=== PATIENT | female | born 1945 | race Caucasian/White ===

== ENCOUNTER → 2024-07-11 | Outpatient (CLI) | payer MEDICARE, OTHER, SELFPAY ==
[2024-07-11 10:09] LABS: Collection Type, Urine Clean Catch
[2024-07-11 10:28] LABS: Basophils % (Auto) 0 % (0-2.5); Eosinophils # (Auto) 0.2 Thou/mm3 (0.0-0.5); Eosinophils % (Auto) 5 % (0-10); Hematocrit 41.8 % (36.0-46.0); Hemoglobin 13.9 g/dL (12.0-16.0); Immature Granulocytes % (Auto) 0 % (0-0); Immature Granulocytes Auto 0.01 Thou/mm3 (0.00-0.00); Lymphocytes # (Auto) 1.1 Thou/mm3 (1.0-4.8); Lymphocytes % (Auto) 22 % (10-50); Mean Corpuscular HGB Conc 33.3 g/dl (31.0-37.0); Mean Corpuscular Hemoglobin 29.8 pg (25.0-35.0); Mean Corpuscular Volume 90 fL (80-100); Monocytes # (Auto) 0.4 Thou/mm3 (0.0-0.8); Monocytes % (Auto) 7 % (0-12); Neutrophils # (Auto) 3.4 Thou/mm3 (1.8-7.7); Neutrophils % (Auto) 65 % (37-80); Nucleated Red Blood Cell % 0 /100 WBC (0); Platelet Count 154 Thou/mm3 (140-440); RDW Standard Deviation 42.1 fL (36.4-46.3); Red Blood Count 4.66 Miln/mm3 (4.00-5.20); White Blood Count 5.1 Thou/mm3 (3.6-11.0)
[2024-07-11 10:45] LABS: Bacteria,Urine Rare; Bilirubin,Urine Negative (Negative); Blood,Urine Negative (Negative); Clarity,Urine Clear (Clear/Hazy); Color,Urine Lt-Yellow (Lt Yel-Yel); Glucose, Urine Negative (Negative); Ketones,Urine Negative (Negative); Leukocyte Esterase,Urine Positive (Negative); Nitrite,Urine Negative (Negative); PH,Urine 6.5 (5.0-7.0); Protein,Urine Negative (Neg - Trace); RBC,Urine 2 /hpf (0-3); Specific Gravity,Urine 1.018 (1.001-1.035); Squamous Epithelial Cell,Urine < 1 /hpf (0-5); Urobilinogen,Urine Negative mg/dL (0.0-1.0); WBC,Urine 6 /hpf (0-5)
[2024-07-11 10:56] LABS: Alanine Aminotransferase 18 U/L (10-49); Albumin, Serum 4.4 gm/dL (3.4-4.8); Albumin/Globulin Ratio 2.2 (1.2-2.2); Alkaline Phosphatase 71 U/L (46-116); Anion Gap 7 (7-16); Aspartate Amino Transferase 20 U/L (0-34); BUN/Creatinine Ratio 21 Ratio (12-20); Bilirubin,Total 0.7 mg/dL (0.3-1.2); Blood Urea Nitrogen 17 mg/dL (9-23); Calcium 9.5 mg/dL (8.3-10.6); Calcium (Corrected) 9.5 mg/dL (8.5-10.1); Carbon Dioxide 27.6 mMol/L (20.0-31.0); Cardiac Risk Estimate 2.9 RATIO (3.7-5.6); Chloride 105 mMol/L (98-107); Cholesterol 223 mg/dL (132-200); Creatinine (Component) 0.8 mg/dL (0.6-1.3); Glucose 92 mg/dL (74-106); HDL Cholesterol 78 mg/dL (40-60); LDL Cholesterol,Calculated 126 mg/dL (0-130); Osmolality,Calculated 280 (275-295); Potassium 4.6 mMol/L (3.4-5.1); Sodium 140 mMol/L (136-145); Thyroid Stimulating Hormone 6.56 uIU/mL (0.55-4.78); Total Protein 6.4 gm/dL (5.7-8.2); Triglycerides 93 mg/dL (30-150); eGFR > 60 See Note
== END | disposition home or self-care (01) ==
LOC: COPL 09:21
PROVIDERS: PCP Internal Medicine; Referring Provider Internal Medicine; Visit Provider Internal Medicine
DX: I10 Essential (primary) hypertension (principal); E78.5 Hyperlipidemia, unspecified; E03.9 Hypothyroidism, unspecified
CPT/HCPCS: 36415; 80053; 80061; 81001; 84443; 85025

== ENCOUNTER → 2024-08-28 | Outpatient (BNVA) | payer MEDICARE, OTHER, SELFPAY | END | disposition home or self-care (01) | PROVIDERS: PCP Internal Medicine; Referring Provider Internal Medicine; Visit Provider Urology | DX: N39.46 Mixed incontinence (principal); G89.4 Chronic pain syndrome; I10 Essential (primary) hypertension; M19.91 Primary osteoarthritis, unspecified site; E78.5 Hyperlipidemia, unspecified; F32.9 Major depressive disorder, single episode, unspecified; E03.9 Hypothyroidism, unspecified | CPT/HCPCS: 81003; 99212; G0463 ==

== ENCOUNTER 2024-08-30 10:08 | Outpatient (RCR) | payer MEDICARE, OTHER, SELFPAY | END 2024-09-10 23:59 | disposition home or self-care (01) | LOC: CPTX 10:08 | PROVIDERS: PCP Internal Medicine; Referring Provider Internal Medicine; Visit Provider Internal Medicine | DX: Z53.9 Procedure and treatment not carried out, unspecified reason (principal) ==

== ENCOUNTER 2024-09-20 09:22 | Emergency (ER) | payer MEDICARE, OTHER, SELFPAY ==
[2024-09-20 09:37] VITALS: BP 122/76; PULSE 87; RESP 18; TEMP 36.9; O2SAT 99; BMI 26.1
--- NOTE | 2024-09-20 10:12 | XR_ITS ---
Examination: Hand, left 3 views Technique: Hand AP, oblique, lateral 3 views Date and time of exam: September 20, 2024 1021 hrs. Indications: Dog bite to the hand 2 days ago with pain Findings: Healed fracture distal radius Prominent osteopenia No acute fracture Soft tissue swelling dorsum of the hand No opaque foreign body Impression: No opaque foreign body
--- NOTE | 2024-09-20 10:19 | EDNOTE_ITS ---
<Statement entered by Tali Guadarrama MD - 09/22/24 07:17> As co-signing physician, I was present and available for consult prn. I concur with the plan and care as documented by the midlevel provider. Upper Extremity Injury RME/HPI General Chief Complaint: Animal Bite Stated Complaint: LEFT HAND PAIN/SWELLING FROM DOG BITE X 3 DAYS Time Seen by Provider: 09/20/24 09:58 Arrival date/time: 09/20/24 09:22 The patient is a 79-year-old female who presented to the emergency department with complaints of pain and swelling to the dorsum of her left hand. She reports being bitten by her own dog near the first and second digits. The patient states she did not notice significant swelling until today. She describes her arm as warm and tender to touch. She denies fever, chills, or rigors. She has not taken any medications prior to her arrival in the emergency department. Limitations: no limitations Related Data Home Medications ?Medication ?Instructions ?Recorded ?Confirmed levothyroxine 88 mcg tablet 88 mcg PO DAILY ##0 08/28/24 (Synthroid) sertraline 100 mg tablet (Zoloft) 100 mg PO BID ##0 08/28/24 baclofen 10 mg tablet 10 mg PO QDAY 10/03/2008/28 diclofenac sodium 50 mg 50 mg PO QDAY 10/03/2008/28 tablet,delayed release pantoprazole 20 mg tablet,delayed 20 mg PO QDAY 08/28/24 release simvastatin 10 mg tablet 10 mg PO QDAY 10/03/2008/28 mirabegron 50 mg tablet,extended 50 mg PO QDAY 5 08/28/24 release 24 hr (Myrbetriq) Previous Rx's ?Medication ?Instructions ?Recorded amoxicillin 875 mg-potassium 1 tab PO BID #10 tabs 04/06 clavulanate 125 mg tablet ibuprofen 600 mg tablet 600 mg PO Q8H PRN fever or p ain 09/20/24 #30 tabs mupirocin 2 % topical ointment 1 applic topical BID 7 days #22 09/20/24 grams Allergies Allergy/AdvReac Type Severity Reaction Status Date / Time No Known Allergies Allergy Verified 09/20/24 09:26 Review of Systems Review of Systems Systems Reviewed: All systems reviewed, normal except as documented Narrative Review of Systems: Gen: No fever, no chills, no weight loss EYES: No discharge, no visual changes, no pain HEENT: No ear pain, no congestion, no sore throat PULM: No shortness of breath, no cough, no congestion CV: No chest pain, no dyspnea on exertion, no palpitations GI: No nausea, no vomiting, no diarrhea, no pain, no constipation : No frequency, no urgency, no dysuria Musc/skel: No joint pain, no back pain Skin: Swelling pain left hand Psyc: No hallucinations, no depression Heme/Lymph: No easy bleeding or bruising tendencies Neuro: No weakness, no headache ED Exam Narrative Physical exam: Alert and awake 79-year-old pleasant female General Limitations: Present no limitations General appearance: Present alert and in no apparent distress Head Head exam: Present atraumatic Eye Eye exam: Present normal appearance, PERRL and EOMI ENT ENT exam: Present normal exam, normal oropharynx and mucous membranes moist Neck Neck exam: Present normal inspection, full ROM and trachea midline Chest Chest inspection: Present normal inspection and symmetric chest wall rise Respiratory Respiratory exam: Present normal lung sounds bilaterally Cardiovascular Cardiovascular exam: Present regular rate, normal rhythm and normal heart sounds Abdominal Exam Abdominal exam: Present soft and normal bowel sounds; Absent distention or tenderness Extremities Exam Extremities exam: Present full ROM and normal capillary refill; Absent pedal edema Expanded Upper Extremity Exam Hand L/R back image: 2 1. + Left dorsum hand swelling pain appears to have cellulitis pattern no abscess formation. 2. Puncture wound in this area mid base 1st and 2nd digit left hand Back Exam Back exam: Present normal inspection and full ROM Neurological Exam Neurological exam: Present alert, oriented X3 and CN II-XII intact Psychiatric Psychiatric exam: Present normal affect and normal mood Skin Skin exam: Present warm, dry, intact and normal color Course Quality Measures none Orders Category Date Time Status XR hand comp LT min 3V Stat Exams 09/20/24 10:12 Completed Ibuprofen Tab [Motrin Tab] Med 09/20/24 10:13 Discontinued 800 mg PO X1 ONE TET,DIP/PERT AC (Adult)-Tdap [Boostrix Adult (Tdap) Med 09/20/24 10:15 Discontinued Vacc] 0.5 ml IMI .ONCE ONE cefTRIAXone [Rocephin] 2 gm Med 09/20/24 10:34 Discontinued Lidocaine 1% 20 ml [Xylocaine 1% 20 ML] 4.2 ml IM X1 Vital Signs Vital signs: Vital Signs Temperature 98.5 F 09/20/24 09:37 Pulse Rate 87 09/20/24 09:37 Respiratory Rate 18 09/20/24 09:37 Blood Pressure 122/76 09/20/24 09:37 Pulse Oximetry (%) 99 09/20/24 09:37 Oxygen Delivery Method Room Air 09/20/24 09:37 Extremity Injury MDM Narrative MDM Narrative:: X-ray imaging of the left hand was obtained and was negative for any fractures or retained foreign bodies. The patient received a tetanus booster in the emergency department. She was treated with 2 grams of Rocephin intravenously for suspected cellulitis. The wound was thoroughly cleansed, and a sterile dressing was applied. The patient is stable for discharge home with a prescription for Augmentin, to be taken twice daily for 10 days. She was advised to follow up with her primary care provider in 2 days for a wound recheck. Strict return precautions were discussed, including instructions to return to the emergency department for any worsening swelling, redness, pain, or concern for systemic infection requiring possible intravenous antibiotics. Patient data External records reviewed:: [facility] previous records and None Clinical information provided by:: patient Social determinants that could affect healthcare access:: none Patient has the following chronic illnesses:: no How is presenting disease/condition affected by chronic disease/condition?: no chronic disease Evaluation data The following diagnostics were reviewed and interpreted by me:: radiology exam(s) Lab and/or radiology exams considered but not ordered:: no Interpretation Summary: Ordering Physician: [facility] Is[facility] Date of Service: 09/20/24 Procedure(s): XR hand comp LT min 3V Accession Number(s): [id number] cc: Harjeet Gavin MD; Joseph [facility]DES[facility] Islas~ Examination: Hand, left 3 views Technique: Hand AP, oblique, lateral 3 views Date and time of exam: September 20, 2024 1021 hrs. Indications: Dog bite to the hand 2 days ago with pain Findings: Healed fracture distal radius Prominent osteopenia No acute fracture Soft tissue swelling dorsum of the hand No opaque foreign body Impression: No opaque foreign body Medications / Prescriptions Medications or Prescriptions considered but not ordered:: no Medication administrations:: Medication Administration History Discontinued Medications Ceftriaxone Sodium 2 gm/ (Lidocaine HCl 4.2 ml) 0 gm IM X1 ONE Stop: 09/20/24 10:35 Last Admin: 09/20/24 11:12 Dose: 2,000 mg Documented By: ER Diphtheria/Tetanus/Acell Pertussis (Diphth,Pertuss(Acell),Tet Vac 0.5 Ml Syr- Adult) 0.5 ml IMi .ONCE ONE Stop: 09/20/24 10:16 Last Admin: 09/20/24 11:11 Dose: 0.5 ml Documented By: ER Ibuprofen (Ibuprofen Tab 400 Mg Tablet) 800 mg PO X1 ONE Stop: 09/20/24 10:14 Last Admin: 09/20/24 11:08 Dose: 800 mg Documented By: ER All medications administered and effective Consultations Consultation(s) initiated? (list below): No Diagnosis Upper Extremity Injury Differential Diagnosis: sprain and strain of wrist, fracture of wrist and finger sprain Most likely diagnosis given after review of the tests above:: Cellulitis left hand, dog bite. Admission Indicated Admission indicated?: not indicated Admission Request Was there a request for admission?: No Disposition Plan Disposition Plan: Discharge Discharge Attestation Discharge Attestation: The patient and all family members were given an opportunity to ask questions and understood the discharge instructions. Discharge instructions specifically effects, indications for sooner follow up or return to the emergency department, and the expected course of current diagnosis. Patient condition: Stable Discharge Plan Plan Patient Disposition: HOME (Self Care) Patient condition on transfer: Stable Prescriptions/Referrals Prescriptions/Med Rec: New mupirocin 2 % ointment 1 applic topical BID 7 Days Qty: 22 0RF amoxicillin-pot clavulanate 875-125 mg tablet 1 tab PO BID Qty: 10 0RF ibuprofen 600 mg tablet 600 mg PO Q8H PRN (Reason: fever or pain) Qty: 30 0RF No Action mirabegron [Myrbetriq] 50 mg tablet extended release 24 hr 50 mg PO QDAY sertraline [Zoloft] 100 MG tablet 100 mg PO BID Qty: 0 levothyroxine [Synthroid] 88 MCG tablet 88 mcg PO DAILY Qty: 0 simvastatin 10 mg Tablet 10 mg PO QDAY pantoprazole 20 mg Tablet,Delayed Release (Dr/Ec) 20 mg PO QDAY baclofen 10 mg Tablet 10 mg PO QDAY diclofenac sodium 50 mg Tablet,Delayed Release (Dr/Ec) 50 mg PO QDAY Problem List Clinical Impression: Dog bite, Cellulitis of hand without finger or thumb, left Patient/Caregiver Discharge Instructions Discharge Activity: activity as tolerated Education Materials: ED Cellulitis, ED Dog Bite Additional Instructions: Today you were evaluated for dog bite to left hand with cellulitis (skin infection). Wound cleaned and dressed. Tetanus shot given. Received IV antibiotics in ED. Take Augmentin twice daily for 10 days as prescribed. Also can take ibuprofen as directed for pain. Keep wound clean, dry, and elevated. Change dressing if soiled. Follow up with your PCP in 2 days for wound check. Return to the ER if you develop worsening swelling, redness, drainage, fever, chills, or difficulty moving your hand. Print Language: Urdu Stand Alone Forms: Leila Award Info., Patient Portal Info Letter PA/[employer] Supervising Physician PA/CHACHA Supervising Physician: Dr. Ross
[2024-09-20] MEDS: IBUPROFEN TAB 400 MG TABLET 800 MG PO (11:08)
[2024-09-20] MEDS: DIPHTH,PERTUSS(ACELL),TET VAC 0.5 ML SYR- ADULT IMi (11:11)
[2024-09-20] MEDS: cefTRIAXone 2 GM, LIDOCAINE 1% 20 ML 4.2 ML IM (11:12)
[2024-09-20 12:07] VITALS: BP 146/88; PULSE 78; RESP 18; TEMP 37.2; O2SAT 98
== END 2024-09-20 12:12 | disposition home or self-care (01) ==
LOC: SERX 11:11
PROVIDERS: Emergency Provider Emergency Medicine; PCP Internal Medicine
DX: S61.052A Open bite of left thumb without damage to nail, initial encounter (principal); S61.251A Open bite of left index finger without damage to nail, initial encounter; L03.114 Cellulitis of left upper limb; Z23 Encounter for immunization; W54.0XXA Bitten by dog, initial encounter
CPT/HCPCS: 73130; 90471; 90715; 96372; 99283; J0696; J3490; A9270

== ENCOUNTER 2024-09-21 16:50 | Emergency (ER) | payer MEDICARE, SELFPAY ==
[2024-09-21 17:15] VITALS: BP 164/84; PULSE 67; RESP 17; TEMP 36.7; O2SAT 97; BMI 25.8
--- NOTE | 2024-09-21 18:33 | PD.EDWOUND ---
ED Wound/Laceration-RME/HPI General Chief Complaint: Wound/Laceration Stated Complaint: Left hand dog bite (was seen here yesterday) Time Seen by Provider: 09/21/24 17:08 Arrival date/time: 09/21/24 16:50 RME / HPI RME / HPI narrative: 79-year-old female patient was brought in for evaluation regarding wound check. Patient sustained dog bite to the left hand dorsal aspect about 4 days ago. Was seen here yesterday and was started on Augmentin. Patient came here because he noticed some redness to the dorsum of the hand. Able to bend and extend the fingers without any limitation denies any swelling and redness to the palmar aspect of the hand. Patient denies any fever. Denies any other complaints no medication was taken prior to arrival. Related Data Home Medications ?Medication ?Instructions ?Recorded ?Confirmed levothyroxine 88 mcg tablet 88 mcg PO DAILY ##0 02/23/09 08/28/24 (Synthroid) sertraline 100 mg tablet (Zoloft) 100 mg PO BID ##0 02/23/09 08/28/24 baclofen 10 mg tablet 10 mg PO QDAY 10/03/20 08/28/24 diclofenac sodium 50 mg 50 mg PO QDAY 10/03/20 08/28/24 tablet,delayed release pantoprazole 20 mg tablet,delayed 20 mg PO QDAY 10/03/20 08/28/24 release simvastatin 10 mg tablet 10 mg PO QDAY 10/03/20 08/28/24 mirabegron 50 mg tablet,extended 50 mg PO QDAY 08/28/24 08/28/24 release 24 hr (Myrbetriq) Previous Rx's ?Medication ?Instructions ?Recorded amoxicillin 875 mg-potassium 1 tab PO BID #10 tabs 09/20/24 clavulanate 125 mg tablet ibuprofen 600 mg tablet 600 mg PO Q8H PRN fever or pain 09/20/24 #30 tabs mupirocin 2 % topical ointment 1 applic topical BID 7 days #22 09/20/24 grams clindamycin HCl 300 mg capsule 300 mg PO TID #21 caps 09/21/24 Allergies Allergy/AdvReac Type Severity Reaction Status Date / Time No Known Allergies Allergy Verified 09/21/24 16:53 Review of Systems Review of Systems Narrative Review of Systems: Review of system reviewed and within normal limits except mentioned in HPI ED Exam Narrative Physical exam: VITAL SIGNS: Reviewed. GENERAL APPEARANCE: Alert and interactive, follows commands, no acute distress, HEAD AND FACE: Non-traumatic. ENT: PERRL, pink conjunctivitis, eyelid no trauma, Mucous membrane moist. NECK: Supple, nontender, no nuchal rigidity. RECTAL: Deferred. GENITAL: Deferred. NEUROLOGICAL: Gross motor function intact sensory function intact, Appropriate for age. MUSCULOSKELETAL: low back nontender, full range of motion. EXTREMITIES: Puncture wound to the dorsum of the hand, dorsal aspect, with mild redness and mild swelling, no redness no swelling to the palmar aspect of the hand and fingers., full range of motion. SKIN: Color pink, dry, no rash, no lacerations, no abrasions, no contusions. LYMPHATICS: Deferred. Course Quality Measures none Orders Category Date Time Status Clindamycin Vial [Cleocin vial] Med 09/21/24 18:32 Once 600 mg IM X1 ONE Ibuprofen Tab [Motrin Tab] Med 09/21/24 18:32 Once 600 mg PO X1 ONE Vital Signs Vital signs: Vital Signs Temperature 98.1 F 09/21/24 17:15 Pulse Rate 67 09/21/24 17:15 Respiratory Rate 17 09/21/24 17:15 Blood Pressure 164/84 H 09/21/24 17:15 Pulse Oximetry (%) 97 09/21/24 17:15 Oxygen Delivery Method Room Air 09/21/24 17:15 Wound / Laceration MDM Narrative MDM Narrative:: 79-year-old female patient was brought in for evaluation regarding wound check. Patient sustained dog bite to the left hand dorsal aspect about 4 days ago. Was seen here yesterday and was started on Augmentin. Patient came here because he noticed some redness to the dorsum of the hand. Able to bend and extend the fingers without any limitation denies any swelling and redness to the palmar aspect of the hand. Patient denies any fever. Denies any other complaints no medication was taken prior to arrival. I added clindamycin to her antibiotic. At this time there is no need to do inpatient IV antibiotic, or surgery at this time. I did not notice any sign of pus or abscess formation. Still patient is having cellulitis to the dorsal aspect of the hand. There is no involvement of the palmar aspect of the hand. Patient hand was wrapped in an Pantera also. Patient was advised to closely monitor the site of infection especially if it involves the palmar aspect of the hand and fingers. Patient and her son agrees with the plan. Patient is not showing any sign of sepsis at this time. Patient is afebrile and not tachycardic Patient data External records reviewed:: None Clinical information provided by:: patient and family Social determinants that could affect healthcare access:: none Patient has the following chronic illnesses:: None How is presenting disease/condition affected by chronic disease/condition?: no chronic disease Evaluation data The following diagnostics were reviewed and interpreted by me:: other (specify) (None) Lab and/or radiology exams considered but not ordered:: None Interpretation Summary: None Medications / Prescriptions Medications or Prescriptions considered but not ordered:: None Medication administrations:: Medication Administration History Discontinued Medications Clindamycin Phosphate (Clindamycin Phos Inj 150 Mg/Ml Vial 6 Ml) 600 mg IM X1 ONE Stop: 09/21/24 18:33 Ibuprofen (Ibuprofen Tab 600 Mg Tablet) 600 mg PO X1 ONE Stop: 09/21/24 18:33 Motrin and clindamycin IM Consultations Consultation(s) initiated? (list below): No Diagnosis Wound Differential Diagnosis: laceration, abscess and other (Hand cellulitis, dog bite, wound check) Most likely diagnosis given after review of the tests above:: Wound check, hand cellulitis, dog bite Admission Indicated Admission indicated?: not indicated Admission Request Was there a request for admission?: No Disposition Plan Disposition Plan: Discharge Discharge Attestation Discharge Attestation: The patient and all family members were given an opportunity to ask questions and understood the discharge instructions. Discharge instructions specifically effects, indications for sooner follow up or return to the emergency department, and the expected course of current diagnosis. Patient condition: Stable Discharge Plan Plan Patient Disposition: HOME (Self Care) Disposition Comment: Stable Prescriptions/Referrals Prescriptions/Med Rec: New clindamycin HCl 300 mg capsule 300 mg PO TID Qty: 21 0RF No Action mirabegron [Myrbetriq] 50 mg tablet extended release 24 hr 50 mg PO QDAY sertraline [Zoloft] 100 MG tablet 100 mg PO BID Qty: 0 levothyroxine [Synthroid] 88 MCG tablet 88 mcg PO DAILY Qty: 0 simvastatin 10 mg Tablet 10 mg PO QDAY pantoprazole 20 mg Tablet,Delayed Release (Dr/Ec) 20 mg PO QDAY baclofen 10 mg Tablet 10 mg PO QDAY diclofenac sodium 50 mg Tablet,Delayed Release (Dr/Ec) 50 mg PO QDAY mupirocin 2 % ointment 1 applic topical BID 7 Days Qty: 22 0RF amoxicillin-pot clavulanate 875-125 mg tablet 1 tab PO BID Qty: 10 0RF ibuprofen 600 mg tablet 600 mg PO Q8H PRN (Reason: fever or pain) Qty: 30 0RF Referrals: No Primary/Family,Physician [Primary Care Provider] - In 1 week Problem List Clinical Impression: Dog bite, Cellulitis of hand without finger or thumb, left, Visit for wound check Patient/Caregiver Discharge Instructions Discharge Activity: activity as tolerated Education Materials: ED Dog Bite Additional Instructions: Thank you for the opportunity for serving you today. You are stable for discharged . You are advised to: Follow-up with your PCP in 1 to 2 days Return to ED for worsening of symptoms, redness to the palmar aspect of the hand, worsening swelling and redness to the dorsal aspect of the hand, fever, and inability to bend and extend the fingers Increase oral fluids Take medication as prescribed Continue taking your antibiotic that was prescribed yesterday Elevate your hand all the time Do range of motion of your fingers Print Language: Greek Stand Alone Forms: Leila Award Info., Patient Portal Info Letter PA/CHACHA Supervising Physician BIGG/CHACHA Supervising Physician: MD Gustavo
[2024-09-21] MEDS: CLINDAMYCIN PHOS INJ 150 MG/ML VIAL 6 ML 600 MG IM (18:42)
[2024-09-21] MEDS: IBUPROFEN TAB 600 MG TABLET PO (18:42)
== END 2024-09-21 18:54 | disposition home or self-care (01) ==
PROVIDERS: Emergency Provider Emergency Medicine
DX: S61.452A Open bite of left hand, initial encounter (principal); W54.0XXA Bitten by dog, initial encounter; L03.114 Cellulitis of left upper limb
CPT/HCPCS: 96372; 99283; J0736; A9270

== ENCOUNTER → 2024-11-07 | Outpatient (CLI) | payer MEDICARE, SELFPAY ==
[2024-11-07 12:14] LABS: Thyroid Stimulating Hormone 1.81 uIU/mL (0.55-4.78)
== END | disposition home or self-care (01) ==
LOC: COPL 11:19
PROVIDERS: PCP Internal Medicine; Referring Provider Internal Medicine; Visit Provider Internal Medicine
DX: E03.9 Hypothyroidism, unspecified (principal)
CPT/HCPCS: 36415; 84439; 84443

== ENCOUNTER → 2025-02-22 | Outpatient (BNVA) | payer MEDICARE, SELFPAY | END | disposition home or self-care (01) | PROVIDERS: PCP Internal Medicine; Referring Provider Internal Medicine; Visit Provider Urology | DX: N35.92 Unspecified urethral stricture, female (principal); E78.00 Pure hypercholesterolemia, unspecified; E03.9 Hypothyroidism, unspecified; F32.A Depression, unspecified | CPT/HCPCS: 52281; 81003; 96372; A4217; A4649; C1894; J1580; A9270 ==

== ENCOUNTER → 2025-03-18 | Outpatient (CLI) | payer MEDICARE, OTHER, SELFPAY ==
[2025-03-18 11:41] LABS: Collection Type, Urine Clean Catch
[2025-03-18 12:24] LABS: Alanine Aminotransferase 15 U/L (10-49); Albumin, Serum 4.0 gm/dL (3.4-4.8); Albumin/Globulin Ratio 1.8 (1.2-2.2); Alkaline Phosphatase 61 U/L (46-116); Anion Gap 6 (7-16); Aspartate Amino Transferase 22 U/L (0-34); BUN/Creatinine Ratio 15 Ratio (12-20); Bilirubin,Total 0.5 mg/dL (0.3-1.2); Blood Urea Nitrogen 15 mg/dL (9-23); Calcium 9.4 mg/dL (8.3-10.6); Calcium (Corrected) 9.4 mg/dL (8.5-10.1); Carbon Dioxide 28.2 mMol/L (20.0-31.0); Cardiac Risk Estimate 3.0 RATIO (3.7-5.6); Chloride 109 mMol/L (98-107); Cholesterol 229 mg/dL (132-200); Creatinine (Component) 1.0 mg/dL (0.6-1.3); Globulin 2.2 gm/dL (2.3-3.5); Glucose 98 mg/dL (74-106); HDL Cholesterol 77 mg/dL (40-60); LDL Cholesterol,Calculated 134 mg/dL (0-130); Osmolality,Calculated 285 (275-295); Potassium 4.8 mMol/L (3.4-5.1); Sodium 143 mMol/L (136-145); Thyroid Stimulating Hormone 3.33 uIU/mL (0.55-4.78); Total Protein 6.2 gm/dL (5.7-8.2); Triglycerides 92 mg/dL (30-150); Uric Acid 4.2 mg/dL (3.1-7.8); eGFR 57 See Note
[2025-03-18 12:25] LABS: Ferritin 182 ng/mL (7.3-270.7); Vitamin B12 452 pg/mL (211-911)
[2025-03-18 12:26] LABS: Basophils # (Auto) 0.0 Thou/mm3 (0.0-0.2); Basophils % (Auto) 0 % (0-2.5); Eosinophils # (Auto) 0.1 Thou/mm3 (0.0-0.5); Eosinophils % (Auto) 3 % (0-10); Hematocrit 39.6 % (36.0-46.0); Hemoglobin 13.4 g/dL (12.0-16.0); Immature Granulocytes Auto 0.01 Thou/mm3 (0.00-0.00); Lymphocytes # (Auto) 1.3 Thou/mm3 (1.0-4.8); Lymphocytes % (Auto) 30 % (10-50); Mean Corpuscular HGB Conc 33.8 g/dl (31.0-37.0); Mean Corpuscular Hemoglobin 30.7 pg (25.0-35.0); Mean Corpuscular Volume 91 fL (80-100); Monocytes # (Auto) 0.4 Thou/mm3 (0.0-0.8); Monocytes % (Auto) 8 % (0-12); Neutrophils # (Auto) 2.7 Thou/mm3 (1.8-7.7); Neutrophils % (Auto) 59 % (37-80); Nucleated Red Blood Cell # 0.00 Thou/mm3 (0.00-0.00); Nucleated Red Blood Cell % 0 /100 WBC (0); Platelet Count 156 Thou/mm3 (140-440); RDW Standard Deviation 41.6 fL (36.4-46.3); Red Blood Count 4.37 Miln/mm3 (4.00-5.20); White Blood Count 4.5 Thou/mm3 (3.6-11.0)
[2025-03-18 12:32] LABS: Bilirubin,Urine Negative (Negative); Blood,Urine Negative (Negative); Clarity,Urine Clear (Clear/Hazy); Color,Urine Lt-Yellow (Lt Yel-Yel); Glucose, Urine Negative (Negative); Ketones,Urine Negative (Negative); Leukocyte Esterase,Urine Positive (Negative); Nitrite,Urine Negative (Negative); PH,Urine 6.0 (5.0-7.0); Protein,Urine Negative (Neg - Trace); RBC,Urine 1 /hpf (0-3); Specific Gravity,Urine 1.016 (1.001-1.035); Squamous Epithelial Cell,Urine 1 /hpf (0-5); Urobilinogen,Urine Negative mg/dL (0.0-1.0); WBC,Urine 4 /hpf (0-5)
== END | disposition home or self-care (01) ==
LOC: COPL 11:10
PROVIDERS: PCP Internal Medicine; Referring Provider Internal Medicine; Visit Provider Internal Medicine
DX: I10 Essential (primary) hypertension (principal); E78.5 Hyperlipidemia, unspecified; E03.9 Hypothyroidism, unspecified; D64.9 Anemia, unspecified
CPT/HCPCS: 36415; 80053; 80061; 81001; 82306; 82607; 82728; 83036; 84443; 84550; 85025

== ENCOUNTER → 2025-03-25 | Outpatient (CLI) | payer MEDICARE, OTHER, SELFPAY ==
--- NOTE | 2025-03-25 15:22 | XR_ITS ---
Examination: Hand, left 3 views Technique: Hand AP, oblique, lateral 3 views Date and time of exam: March 25, 2025, 1533 hours, comparison 01/24/2025 INDICATIONS: Cyst on the ulnar side of the wrist 3 years, pain FINDINGS: Healed fracture distal radial metaphysis Ununited ulnar styloid tip fracture Moderate narrowing radiocarpal joint Moderate osteopenia. No acute fracture Mild osteoarthritis distal interphalangeal joints IMPRESSION: Healed fracture distal radial metaphysis
--- NOTE | 2025-03-25 15:22 | XR_ITS ---
Examination: Wrist, left 3 views Technique: Wrist AP, oblique, lateral 3 views Date and time of exam: March 25, 2025, 1533 hours, comparison September 20, 2024 INDICATIONS: Left wrist pain several years FINDINGS: Healed fracture distal radial metaphysis Moderate in the radiocarpal joint Moderate osteopenia No acute fracture IMPRESSION: Healed fracture distal radial metaphysis with satisfactory alignment
== END | disposition home or self-care (01) ==
LOC: CDIM 14:57
PROVIDERS: PCP Internal Medicine; Referring Provider Nurse Practitioner Gerontology; Visit Provider Nurse Practitioner Gerontology
DX: M79.642 Pain in left hand (principal); M25.532 Pain in left wrist; Z87.81 Personal history of (healed) traumatic fracture
CPT/HCPCS: 73110; 73130

== ENCOUNTER → 2025-04-29 | Outpatient (CLI) | payer MEDICARE, OTHER, SELFPAY ==
--- NOTE | 2025-04-29 11:00 | XR_ITS ---
Examination: Screening digital mammography, bilateral Computer aided detection 3-D breast Tomosynthesis, bilateral Date and time of exam: April 29, 2025, 1055 hours, compared to mammograms dating to April 04, 2017 Indication: Screening Technique: Nonmagnified MLO, CC views of the breasts to been obtained, reconstructed from 3-D Tomosynthesis images. R2 computer aided detection program utilized for evaluation of suspicious masses and/or abnormal calcifications. 3-D Tomosynthesis images obtained. Findings: Scattered areas of fibroglandular density. Benign calcifications. No interval suspicious masses Impression: BI-RADS category II: Benign Findings. Recommend 1 year follow-up mammogram.
== END | disposition home or self-care (01) ==
LOC: CDIM 10:41
PROVIDERS: Referring Provider Internal Medicine; Visit Provider Internal Medicine
DX: Z12.31 Encounter for screening mammogram for malignant neoplasm of breast (principal); R92.323 Mammographic fibroglandular density, bilateral breasts; R92.1 Mammographic calcification found on diagnostic imaging of breast
CPT/HCPCS: 77063; 77067